=== PATIENT | female | born 1980 | race Two or more races ===

== ENCOUNTER 2020-06-15 20:30 | Inpatient (IN) | payer MEDICAID, SELFPAY ==
[~2020-06-15] VITALS: Ht 160 cm; Wt 55.3 kg
[2020-06-15] MEDS ORDERED: OXYTOCIN 20 UNITS/LR PREMIX 1,000 ML IV ONE (21:03)
[2020-06-15] MEDS ORDERED: LACTATED RINGERS 1,000 ML IV SCH (21:23)
[2020-06-15] MEDS ORDERED: CARBOPROST 250 MCG/ML AMP IM PRN (21:25)
[2020-06-15] MEDS ORDERED: METHYLERGONOVINE 0.2 MG/ML AMP IM PRN ×2 (21:25→21:35)
[2020-06-15] MEDS ORDERED: BENZOCAINE/MENTHOL 20%-0.5% 60 GM CAN TP PRN (21:35)
[2020-06-15] MEDS ORDERED: bisacodyL 5 MG TABEC PO PRN (21:35)
[2020-06-15] MEDS ORDERED: IBUPROFEN 600 MG TAB PO PRN ×2 (21:35)
[2020-06-15] MEDS ORDERED: METHYLERGONOVINE 0.2 MG TAB PO PRN (21:35)
[2020-06-15] MEDS ORDERED: MEASLES, MUMPS, AND RUBELLA 1 VIAL SQVAC PRN (21:35)
[2020-06-15] MEDS ORDERED: DOCUSATE SODIUM 100 MG GELCAP PO PRN (21:35)
[2020-06-15] MEDS ORDERED: OXYTOCIN 10 UNITS/ML VIAL IM PRN (21:35)
[2020-06-15] MEDS ORDERED: SIMETHICONE 80 MG TAB.CHEW PO PRN (21:35)
[2020-06-15 22:26] LABS: BASOPHILS % (AUTO) 0.5 % (0.0-2.0); EOSINOPHILS % (AUTO) 0.6 % (0.0-4.0); HEMATOCRIT 30.1 % (36-48); HEMOGLOBIN 9.4 g/dL (12.0-16.0); LYMPHOCYTES # (AUTO) 1.5 K/uL (2.5-16.5); MEAN CORPUSCULAR HEMOGLOBIN 21 pg (27-31); MEAN CORPUSCULAR HGB CONC 31 g/dL (33-37); MEAN CORPUSCULAR VOLUME 66.2 fL (80-94); MONOCYTES # (AUTO) 0.7 K/uL (0.8-1.0); MONOCYTES % (AUTO) 8.9 % (1.7-9.3); NEUTROPHILS # (AUTO) 5.2 K/uL (1.8-7.7); PLATELET COUNT (AUTO) 241 K/uL (140-450); RED BLOOD CELL COUNT(AUTO) 4.55 MIL/uL (4.20-5.40); RED CELL DISTRIBUTION WIDTH 16.9 % (11.6-13.7); WHITE BLOOD COUNT (AUTO) 7.5 K/uL (4.8-10.8)
[2020-06-15 22:41] LABS: ALBUMIN 2.1 g/dL (3.4-5.0); ANION GAP 15.4 (8-16); CARBON DIOXIDE 22.6 mmol/L (21-32); CREATININE 0.7 mg/dL (0.6-1.3); TOTAL BILIRUBIN 0.3 mg/dL (0.0-1.0)
[2020-06-15] MEDS: IBUPROFEN 800 MG TAB PO PRN (23:27)
[2020-06-16 00:47] VITALS: BP 120/70
[2020-06-16 01:05] LABS: BILIRUBIN,URINE NEGATIVE (NEGATIVE); BLOOD, URINE 2+ (NEGATIVE); COLOR,URINE RED (YELLOW); LEUKOCYTE ESTERASE ,URINE NEGATIVE (NEGATIVE); NITRITE, URINE POSITIVE (NEGATIVE); PH,URINE 6.5 (5.0-9.0); UGLUCOSE NEGATIVE (NEGATIVE)
[2020-06-16 01:09] LABS: BARBITURATE, URINE NEGATIVE ng/ml (NEG <=200); BENZODIAZEPINE, URINE NEGATIVE ng/mL (NEG <=200); CANNABINOID, URINE NEGATIVE ng/mL (NEG <=50); COCAINE, URINE NEGATIVE ng/mL (NEG <=300); PHENCYCLIDINE SCREEN,URINE NEGATIVE ng/mL (NEG <=25)
[2020-06-16 01:10] LABS: OPIATE, URINE NEGATIVE ng/mL (NEG <=2000)
[2020-06-16 01:38] LABS: APPEARANCE,URINE BLOODY (CLEAR)
[2020-06-16 01:40] LABS: RBC,URINE TOO NUMEROUS TO COUN /HPF (0-5)
--- NOTE | 2020-06-16 08:22 | NUR ---
PATIENT HAS BEEN SCREENED AND CATEGORIZED LOW NUTRITION RISK. PATIENT WILL BE SEEN WITHIN 7 DAYS OF ADMISSION. 06/22/[address]
[2020-06-16 09:57] LABS: HEMATOCRIT 28.1 % (36-48); HEMOGLOBIN 8.9 g/dL (12.0-16.0)
[2020-06-16] MEDS ORDERED: cefTRIAXone 1,000 MG VIAL ONE (10:19)
[2020-06-16] MEDS ORDERED: NACL 0.9% 1,000 ML IV SCH (10:25)
[2020-06-16] MEDS: IBUPROFEN 800 MG TAB PO PRN (20:42)
--- NOTE | 2020-06-17 13:19 | NUR ---
PRIMER EXPEDITOR AND DRIER NOTE: SW WAS INFORMED THAT CPS WAS FILED ON PATIENT. SW MET WITH PATIENT AT BEDSIDE WHO WAS WITH ERICK BUENO [phone]. SW ASSESSED BOTH PATIENT AND ERICK. PATIENT VERIFIED ADDRESS AND STATED SHE HAD 4 CHILDREN: NIKO DELGADO (15), DIANNA VELASQUEZ (10), OCHOA VELASQUEZ (4), AND DOUGLAS VELASQUEZ (1). SW INQUIRED ABOUT DRUG USE AND PATIENT STATED DENIED THAT SHE HAD USED. PATIENT AND ERICK BOTH BECAME DEFENSIVE ABOUT DRUG USE BUT ACCEPTED SUBSTANCE ABUSE RESOURCES. SW WILL FOLLOW UP NEEDED.
== END 2020-06-17 21:00 | disposition home or self-care (01) | DRG 560 ==
LOC: EDBD 20:30 → MLD 20:30 → MFCC 06-16 00:44
PROVIDERS: ADMIT Obstetrics & Gynecology; ATTEND Obstetrics & Gynecology
PROC: 10E0XZZ Delivery of Products of Conception, External Approach (ICD-10-PCS; principal; 2020-06-15)
PROC: 3E0234Z Introduction of Serum, Toxoid and Vaccine into Muscle, Percutaneous Approach (ICD-10-PCS; 2020-06-17)
DX: O62.3 Precipitate labor (principal); O99.324 Drug use complicating childbirth; F15.90 Other stimulant use, unspecified, uncomplicated; O99.02 Anemia complicating childbirth; Z20.828 Contact with and (suspected) exposure to other viral communicable diseases; Z3A.36 36 weeks gestation of pregnancy; Z37.0 Single live birth; Z23 Encounter for immunization
CPT/HCPCS: 36415; 59409; 80053; 80305; 81001; 85018; 85025; 86592; 86762; 86886; 86900; 86901; 87086; 87186; 87340; 87653-90; 88307; 90715; J0696; J2590; J7060; U0003-CS